=== PATIENT | female | born 1965 | race Caucasian/White ===

== ENCOUNTER 2020-01-07 06:51 | Inpatient (IN) ==
[2020-01-07] MEDS ORDERED: Famotidine 20 MG/2 ML VIAL IVP ONE (07:21)
[2020-01-07] MEDS ORDERED: Acetaminophen IV 1,000 MG/100 ML BAG IVPB ONE (07:22)
[2020-01-07] MEDS ORDERED: Ringers Solution, Lactated 1,000 ML IVC SCH ×2 (07:30→12:08)
[2020-01-07] MEDS ORDERED: cefOXitin 2,000 MG in Water for inj. (sterile) 20 ML IVP ONE (07:33)
[2020-01-07] MEDS ORDERED: Ketorolac 15 MG/ML VIAL IVP ONE (07:33)
[2020-01-07] MEDS ORDERED: *HR* OxyCODONE Immed Rel 5 MG TABLET PO PRN (08:45)
[2020-01-07] MEDS ORDERED: *HR* FentaNYL (PF) 100 MCG/2 ML VIAL ONE (09:42)
[2020-01-07] MEDS ORDERED: Lidocaine -MPF 2% 2 ML VIAL ONE (09:42)
[2020-01-07] MEDS ORDERED: *HR* Rocuronium Bromide 50 MG/5 ML VIAL ONE (09:42)
[2020-01-07] MEDS ORDERED: *HR* Midazolam HCl 2 MG/2 ML VIAL ONE (09:42)
[2020-01-07] MEDS ORDERED: Dexamethasone 4 MG/ML VIAL ONE (09:42)
[2020-01-07] MEDS ORDERED: Lidocaine -MPF 4% 5 ML AMPUL ONE (09:42)
[2020-01-07] MEDS ORDERED: *HR* Propofol 200 MG/20 ML VIAL IVP ONE (09:42)
[2020-01-07] MEDS ORDERED: Ondansetron 4 MG/2 ML VIAL ONE (09:42)
[2020-01-07] MEDS ORDERED: Bupivacaine/EPI 1:200k 0.25%PF 30 ML VIAL ONE (10:34)
[2020-01-07] MEDS ORDERED: Naloxone 0.4 MG/ML INJ IVP PRN (12:00)
[2020-01-07] MEDS ORDERED: Ondansetron 4 MG/2 ML VIAL IVP PRN (12:00)
[2020-01-07] MEDS ORDERED: *HR* HYDROmorphone (PF) 1 MG/ML SYRINGE IVP PRN (12:06)
[2020-01-07] MEDS: *HR* HYDROmorphone PF 0.5 MG/0.5 ML SYRINGE IVP PRN ×4 (12:08→12:32)
[2020-01-07] MEDS: *HR* OxyCODONE/APAP 5/325 TABLET PO PRN ×2 (16:29→22:22)
[2020-01-07] MEDS: Ketorolac 15 MG/ML VIAL IVP SCH (18:26)
[2020-01-07] MEDS: CeFAZolin 2 GM/120 ML BAG IVPB SCH (20:51)
[2020-01-08] MEDS: Ketorolac 15 MG/ML VIAL IVP SCH ×2 (00:54→08:40)
[2020-01-08] MEDS: *HR* OxyCODONE/APAP 5/325 TABLET PO PRN ×2 (03:32→10:34)
[2020-01-08] MEDS: CeFAZolin 2 GM/120 ML BAG IVPB SCH (03:33)
[2020-01-08 05:34] LABS: Basophils % 0.3 %; Hematocrit 34.3 % (35.3-44.9); Hemoglobin 10.1 g/dL (11.5-15.4); Immature Granulocytes % 0.5 % (0-4); Lymphocytes # 1.1 K/mcL (0.6-4.6); Lymphocytes % 6.8 %; Mean Corpuscular HGB Conc 29.4 g/dL (31.6-35.5); Mean Corpuscular Hemoglobin 26.2 pg (28.0-33.3); Mean Corpuscular Volume 89.1 fL (83.0-100.0); Mean Platelet Volume 10.9 fL (9.4-12.4); Monocytes % 6.2 %; Neutrophils # 13.8 K/mcL (1.6-8.9); Platelet Count 238 K/mcL (140-400); Red Blood Count 3.85 M/mcL (3.82-4.97); Red Cell Distribution Width 19.5 % (11.5-14.5); Segmented Neutrophils % 86.2 %
[2020-01-08 05:54] LABS: eGFR For African Americans > 60 (> 60); eGFR For Non-African Americans > 60 (> 60)
[2020-01-08 07:54] VITALS: BP 125/74
== END 2020-01-08 11:41 | disposition home or self-care (01) | DRG 743 ==
LOC: SAMDAY 06:51 → 1NENUOBS 13:11
PROVIDERS: ADMIT Obstetrics & Gynecology; ATTEND Obstetrics & Gynecology